=== PATIENT | male | born 1945 | race Caucasian/White ===

== ENCOUNTER 2019-03-12 10:11 | Observation (INO) ==
--- NOTE | 2019-03-12 10:42 | History & Physical Report ---
Date of Encounter: 03/12/19 Time of Encounter: 10:42 24 Hour HP Update - Instructions Instructions: If the History and Physical is less than 30 days old and was completed prior to A.M. admission and or procedure and has NOT been updated on calendar day of procedure please complete this update prior to performing procedure. - Update Patient reports changes in Medical Condition: No Changes in examination, assessment, or condition: No Changes in Medication: No Preop tests/diagnostics Reviewed: Yes Surgery Remains Indicated: Yes Consent for Planned Operative Procedure(s) Verified: Yes - Pre-Operative Checklist Preoperative Checklist Indicated: No Prophylactic Antibiotic Ordered: Yes Is VTE Prophylaxis Indicated?: Yes
--- NOTE | 2019-03-12 10:43 | Discharge Summary ---
Date of Encounter: 03/15/19 Time of Encounter: 15:23 - Discharge Diagnosis (1) Complete tear of anterior cruciate ligament of right knee Priority: Primary Status: Acute Qualifiers: Encounter type: subsequent encounter Qualified Code(s): S83.511D - Sprain of anterior cruciate ligament of right knee, subsequent encounter (2) Tear of lateral collateral ligament of right knee Priority: Primary Status: Acute Qualifiers: Encounter type: subsequent encounter Qualified Code(s): S83.421D - Sprain of lateral collateral ligament of right knee, subsequent encounter (3) Arthritis of right knee Priority: Primary Status: Chronic (4) Hypertension Priority: Secondary Status: Chronic Qualifiers: Hypertension type: unspecified Qualified Code(s): I10 - Essential (primary) hypertension (5) Obstructive sleep apnea Priority: Secondary Status: Chronic (6) Type 2 diabetes mellitus Priority: Secondary Status: Chronic Qualifiers: Diabetes mellitus senior living insulin use: unspecified production administrator insulin use status Diabetes mellitus complication status: without complication Qualified Code(s): E11.9 - Type 2 diabetes mellitus without complications (7) Status post total knee replacement, right Priority: Primary Status: Acute - Hospital Course Hospital course: Mr. Dominguez is a 73 year old male The patient had an uneventful postoperative course. They received antibiotics and physical therapy and were discharged in stable condition. There will follow-up in the office in 2 weeks. - Time Spent with Patient Total time spent providing and/or coordinating discharge services: - Discharge Medications Prescriptions: New Aspirin Enteric Coated [Aspirin EC] 325 mg PO BID #20 tablet. OxyCOLUBNA Immed Rel [Roxicodone 5 MG] 5 mg PO Q6HR PRN 5 Days #20 tablet PRN Reason: Pain Continued Amlodipine Besylate 5 mg PO BID Finasteride [Proscar] 5 mg PO DAILY Fluticasone Propionate Nasal [Flonase] 1 spr NS DAILY PRN PRN Reason: Allergy Symptoms Hydralazine HCl 100 mg PO Q8H Isosorbide MONOnitrate (24 HR) [Imdur] 60 mg PO DAILY Levocetirizine Dihydrochloride [Allergy Relief (Xyzal)] 5 mg PO DAILY Lisinopril [Zestril] 40 mg PO DAILY Metformin HCl 1,000 mg PO BID Pantoprazole Sodium [Protonix] 40 mg PO DAILY Potassium Chloride 20 meq PO DAILY Rosuvastatin Calcium 5 mg PO HS Semaglutide [Ozempic] 0.25 mg IM FR Nebivolol HCl [Bystolic] 20 mg PO DAILY Discontinued Meloxicam 7.5 mg PO DAILY Aspirin [Lo-Dose Aspirin EC] 81 mg PO DAILY Home Medications: Amlodipine Besylate 5 mg PO BID 03/12/19 [History] Aspirin Enteric Coated [Aspirin EC] 325 mg PO BID #20 tablet. 03/12/19 [Rx] Finasteride [Proscar] 5 mg PO DAILY 03/12/19 [History] Fluticasone Propionate Nasal [Flonase] 1 spr NS DAILY PRN 03/12/19 [History] Hydralazine HCl 100 mg PO Q8H 03/12/19 [History] Isosorbide MONOnitrate (24 HR) [Imdur] 60 mg PO DAILY 03/12/19 [History] Levocetirizine Dihydrochloride [Allergy Relief (Xyzal)] 5 mg PO DAILY 03/12/19 [History] Lisinopril [Zestril] 40 mg PO DAILY 03/12/19 [History] Metformin HCl 1,000 mg PO BID 03/12/19 [History] Nebivolol HCl [Bystolic] 20 mg PO DAILY 03/12/19 [History] OxyCODONE Immed Rel [Roxicodone 5 MG] 5 mg PO Q6HR PRN 5 Days #20 tablet 03/12/19 [Rx] Pantoprazole Sodium [Protonix] 40 mg PO DAILY 03/12/19 [History] Potassium Chloride 20 meq PO DAILY 03/12/19 [History] Rosuvastatin Calcium 5 mg PO HS 03/12/19 [History] Semaglutide [Ozempic] 0.25 mg IM FR 03/12/19 [History] Allergies/Adverse Reactions: Allergy/AdvReac Type Severity Reaction Status Date / Time No Known Allergies Allergy Verified 03/12/19 10:44 Primary care physician: Elmo simmons - Patient Status Disposition: Home, Self-Care Condition: Good Functional capacity at discharge: uses cane/walker Overall status at discharge: patient is progressing back to baseline - Discharge Instructions Instructions: Total Knee Replacement (DC) Follow Up With: Elmo simmons [Other] Additional Instructions: Discharge Instructions: Total Knee Replacement Please call [facility] ([phone]), your Primary Care Physician, or report to the Emergency Room if you have any of the following symptoms: Nausea, vomiting, fever greater that 101.5, swelling, chest pain, shortness of breath, increased pain/redness/drainage/odor for your incision site, numbness/tingling, or any other concerning symptoms. ACTIVITY:Weight-bearing as tolerated. You may progress off support (crutches or walker) as tolerated. Incentive Spirometer 10 times an hour. MEDICATIONS: Upon discharge resume your home medications. Take all the medications as prescribed. Take a stool softener if taking narcotic pain medications. Stool softeners are only effective if you drink enough fluids. Drink 6-8 glass of water or fluids a day, unless this is not allowed for another health problem. Despite using stool softeners, if you haven't had a bowel movement in 3 days, please switch to a gentle laxative. Gentle laxatives are sold over the counter. You should have a bowel movement within 24 hours, if not call the office. You will be discharged from the hospital with a prescription for pain medication. You are encouraged to decrease the use of narcotic pain medication as tolerated. Should you require a refill, please call the office. [facility] prescribes narcotic pain medication for only 4-6 weeks after surgery. If you require pain medication beyond this time period, you may be referred to your Primary Care Physician or to the Pain Clinic for further evaluation. Plan ahead for refills on pain medication as many narcotics either need to be picked up at the office or mailed. It is best to call 48-72 hours in advance of needing a prescription refill so you don't run out of medication. To help control the post-operative pain, you may take NSAIDs (Aleve,Advil, Mo natalie, Ibuprofen, Naprosyn) or Tylenol as prescribed on the bottle in addition to the pain medication. ANTICOAGULATION (blood thinners): Continue your Aspirin, Lovenox or Coumadin as prescribed to help prevent a blood clot in the leg or in the lungs. As long as your incision remains dry and you tolerate the NSAIDs (Aleve, Advil, Motrin, ibuprofen, naprosyn), it is OK to use the NSAIDS while you are taking your anticoagulation medication. Should your incision start to drain, stop the NSAID and contact our office. Common symptoms of blood clot in the legs include: localized pain, swelling, calf tenderness, redness or discoloration of the skin. Blood clot in the lung symptoms include: shortness of breath, rapid pulse, sweating, and chest pain that worsens with deep breathing, coughing up blood, lightheadedness, feelings of anxiety. If you experience any of these symptoms notify your physician immediately, go to the emergency room, or if having trouble breathing, call 911. WOUND CARE: Leave the dressing on for 7 to 10days. You may change the dressing if it becomes saturated greater than 50%. Do not get the dressing wet at anytime. Wash your hands with antibacterial soap, rinse and dry prior to any wound care. If you have justin the visiting nurse or rehab facility can remove the stapes 10-14 days after surgery and place steri-strips across the wound. Leave the steri-strips in place until they fall off on their won. You may let water from the shower run on top of the steri-strips. If you do not have a visiting nurse or rehab facility, you will need to return to the office at 10-14 days for the justin to be removed. If you have itching or redness around the dressing call the office. FOLLOW-UP: Please follow up with your surgeon in the orthopedic clinic in 4 weeks from the day of surgery. If you have justin that need to be removed, you will need to come back to the office in 10-14 days from the day of surgery.
[2019-03-12] MEDS ORDERED: CeFAZolin Syr 2,000MG/20 ML 2,000 MG/20 ML SYRINGE IVPB ONE (10:53)
--- NOTE | 2019-03-12 10:53 | Anesthesia Evaluation PreOp ---
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)) Other Medical History: Diabetes Type II (does not use insulin), GERD Anesthesia History: No Prior Anesthetic Complications, Past Anesthesia (left renal stent) Medications and Allergies Amlodipine Besylate 5 mg PO BID 03/12/19 [History] Aspirin [Lo-Dose Aspirin EC] 81 mg PO DAILY 03/12/19 [History] Finasteride [Proscar] 5 mg PO DAILY 03/12/19 [History] Fluticasone Propionate Nasal [Flonase] 1 spr NS DAILY PRN 03/12/19 [History] Hydralazine HCl 100 mg PO Q8H 03/12/19 [History] Isosorbide MONOnitrate (24 HR) [Imdur] 60 mg PO DAILY 03/12/19 [History] Levocetirizine Dihydrochloride [Allergy Relief (Xyzal)] 5 mg PO DAILY 03/12/19 [History] Lisinopril [Zestril] 40 mg PO DAILY 03/12/19 [History] Meloxicam 7.5 mg PO DAILY 03/12/19 [History] Metformin HCl 1,000 mg PO BID 03/12/19 [History] Nebivolol HCl [Bystolic] 20 mg PO DAILY 03/12/19 [History] Pantoprazole Sodium [Protonix] 40 mg PO DAILY 03/12/19 [History] Potassium Chloride 20 meq PO DAILY 03/12/19 [History] Rosuvastatin Calcium 5 mg PO HS 03/12/19 [History] Semaglutide [Ozempic] 0.25 mg IM FR 03/12/19 [History] Allergy/AdvReac Type Severity Reaction Status Date / Time No Known Allergies Allergy Verified 03/12/19 10:44 - Meds/Allergy Pre-op Review Medications Reviewed: Yes Allergies Reviewed: Yes Beta Blockers on Current Med List: Yes (bystolic) If Beta Blockers taken, Date/Time (Last Dose taken): 03-12-19 bystolic at 7 am Anesthesia Results - Labs Laboratory Tests 04/24/19 04/24/19 04/24/19 09:18 09:18 09:18 WBC 5.2 Hgb 13.8 Hct 42.1 Plt Count 251 PT 10.4 INR 0.9 APTT 34.5 Sodium 140 Potassium 3.5 Chloride 101 Carbon Dioxide 29 BUN 17 Creatinine 0.94 Est GFR ( Amer) > 60 Est GFR (Non-Af Amer) > 60 BUN/Creatinine Ratio 18 Glucose 112 H Est Mean Plasma Glucose Hemoglobin A1c Calculated Osmolality 292 Calcium 9.4 03/10/19 09:18 WBC Hgb Hct Plt Count PT INR APTT Sodium Potassium Chloride Carbon Dioxide BUN Creatinine Est GFR ( Amer) Est GFR (Non-Af Amer) BUN/Creatinine Ratio Glucose Est Mean Plasma Glucose 128 Hemoglobin A1c 6.1 H Calculated Osmolality Calcium Anesthesia Exam Last Vital Signs Temp 97.7 F 03/12/19 10:44 Pulse 65 03/12/19 10:44 Resp 18 03/12/19 10:44 BP 152/91 03/12/19 10:44 Pulse Ox 97 03/12/19 10:44 Weight: 78 kg NPO (# of Hours): > 8 hrs - HEENT Pupil (Motor): Pupils equal, EOMI Mallampati: III Teeth: Missing Denture Type: Upper: Partial Oral Opening: Greater than 3 - YOUTH CARE WORKER LOC: Oriented - Cardiac Rhythm: Regular Murmur: None - Pulmonary Breath Sounds: bilateral Clear Respiratory Effort: Symmetrical Anesthesia Assess/Plan ASA Score: 2 Level of consciousness: Cooperative Anesthetic Plan: Regional Nerve Block (Adductor canal), MAC, Spinal Regional Nerve Block Plan: Adductor canal Monitoring Plan: Standard Monitors Recovery Plan: PACU
[2019-03-12] MEDS ORDERED: Ringers Solution, Lactated 1,000 ML IVC SCH (11:00)
[2019-03-12] MEDS ORDERED: *HR* FentaNYL (PF) 100 MCG/2 ML VIAL ONE (11:16)
[2019-03-12] MEDS ORDERED: *HR* Propofol 200 MG/20 ML VIAL IVP ONE (11:17)
[2019-03-12] MEDS ORDERED: *HR* Midazolam HCl 2 MG/2 ML VIAL ONE (11:17)
[2019-03-12] MEDS ORDERED: Lidocaine -MPF 2% 2 ML VIAL ONE (11:19)
[2019-03-12] MEDS ORDERED: *HR* OxyCODONE Immed Rel 5 MG TABLET PO ONE (11:28)
[2019-03-12] MEDS ORDERED: Celecoxib 200 MG CAPSULE PO ONE ×2 (11:29→11:34)
[2019-03-12] MEDS ORDERED: Gabapentin 300 MG CAPSULE PO ONE (11:29)
[2019-03-12] MEDS ORDERED: *HR* OxyCODONE Immed Rel 5 MG TABLET ONE (11:34)
[2019-03-12] MEDS ORDERED: ROPIVACAINE HCL/PF 0.5% 30 ML VIAL ONE (11:34)
[2019-03-12] MEDS ORDERED: Gabapentin 300 MG CAPSULE ONE (11:35)
[2019-03-12] MEDS ORDERED: Ethanol\\Acetic Acid\\Na Ace\\Ben 1,000 ML IRRIG.SOLN IR ONE (11:45)
[2019-03-12] MEDS ORDERED: Lidocaine -MPF 1% 5 ML AMPUL ONE (11:50)
[2019-03-12] MEDS ORDERED: Ropivacaine/PF 0.5% 24.62 ML, EPINEPHrine 0.25 MG, Ketorolac 15 MG, Water for inj. (ste... IR ONE (12:25)
--- NOTE | 2019-03-12 12:42 | Anesthesia Procedures ---
Date of Encounter: 03/12/19 Time of Encounter: 12:38 Procedures: Anesthesia - Nerve Block Procedure Date: 03/12/19 Time: 12:00 Allergies/Adv Reactions: No Known Allergies Allergy (Verified 03/12/19 10:44) Pre-op Diagnosis: right knee acl and lcl tear, oa Surgical Procedure: right total knee Checklist: Correct Patient Identifier, Correct procedure, History checked Correct side: Right Blood Thinner: No Monitor Applied: EKG, BP, Pulse Oximetry Supplemental Oxygen via Nasal Cannula (L/min): 2 Sedation: Versed (mg): 2 Sedation: Fentanyl (mcg): 100 Indication: Post Op Analgesia Block Type: Other (adductor) Catheter placed: No Sterile Technique: Yes Ultrasound used: Yes Anatomy identified: Yes Visual spread of Local: Yes Neuro Stimulation: No Blood on Needle Aspiration: No Smooth Injection of Local: Yes Pain with Injection of Local: No Prep: Chlorhexadine Needle: 22 x 50 mm Stimuplex Local: Ropivacaine (0.) Volume (cc): 15 Number of Attempts: 1 Complications: None/effective block
[2019-03-12] MEDS ORDERED: Tranexamic Acid 1,000 MG/10 ML VIAL ONE (12:45)
--- NOTE | 2019-03-12 12:45 | Anesthesia Procedures ---
Date of Encounter: 03/12/19 Time of Encounter: 11:55 Procedures: Anesthesia - Epidural/Spinal Patient ID/Chart reviewed: Yes Patient examined: Yes Site Prep: Aseptic Technique Patient position: upright Local Anesthetic: Lidocaine 1% Amount of Local Anesthetic used: 2 Procedure: L4-5 aseptically x 1 attempt, clear csf, no parasthesias, no heme. 2.5cc 0.5% bupivicaine plain after positive swirl. Tolerated without complaint.
--- NOTE | 2019-03-12 13:52 | Orthopedic Operative Note ---
Date of procedure: 03/12/19 Pre-op diagnosis: Right knee ACL tear/LCL tear/arthritis Post-op diagnosis: same Procedure: Procedure: Right robotic-assisted Total knee replacement Estimated blood loss: 100 cc Hardware: Metal and polyethylene replacement. Keller Femur: 4 Tibia: 5 TS insert: 9 Patella:36 Exam Under anesthesia: 2 degree flexion contracture 2 degrees valgus as calculated by the robot full flexion Procedural Notes: Grade 2 varus laxity complete ACL tear grade 3 arthritic changes trochlear groove lateral compartment Operative procedure: The patient was brought to the operating room and placed on the operating room table. After general anesthesia was administered the operative knee was examined. Findings were noted in the exam under anesthesia. The operative extremity was prepped and draped in sterile surgical fashion. The patient received IV antibiotics prior to skin incision. A standard midline incision was made centered over the patella. The incision was made through the skin and subcutaneous tissue. A medial parapatellar tendon approach was performed. Care was taken to preserve tissue along the medial aspect of the patella. And to protect the patella tendon. The deep MCL was released off the medial tibia. The infra patella fat pad was excised. The patella was everted and cut was made at the level of the insertion of the quadriceps and patella tendon. The patella was sized the guide was seated and the lug holes are drilled. Knee was brought into flexion. Patient noted to have grade 3 arthritic changes trochlear groove and lateral compartment, complete ACL tear. Steinmann pins were placed in the tibia and the femur for the tibial and femoral arrays respectively. Checkpoints were also placed in the tibia and the femur for calculation purposes. The knee including the femur and the tibial registered. Osteophytes, ACL was torn PCL was excised. Extension and flexion were assessed with a valgus stress components were adjusted on the computer to balance the knee. Femoral cuts were made first with robotic assistance, these included the anterior cut posterior cuts chamfer cuts. Tibial cut was then performed with robotic assistance as well. Bone fragments were removed, as well as the medial and lateral meniscus. The size 4 femoral guide was seated box cut was made lug holes are drilled. The size 5 tibial tray was seated and prepared with the fin cutter. Trial reduction with the 9 TS Gege revealed extension of 0 degree and 0 degrees varus valgus full flexion. No varus valgus instability. Trial reduction revealed excellent patella tracking. All trial components were removed all bony surfaces were irrigated. The Tibia was seated followed by the femur, The selected Gege size was seated and secured patella. Patient had similar findings for motion and stability. The knee was then irrigated out with 2 L of pulse irrigation. The extensor mechanism was closed with #2 FiberWire suture and #2 PDS suture. The subcutaneous tissue was then irrigated and closed deep with #1 PDS suture superficially with 0 PDS suture and skin was closed with zip tie The patient was then placed in a sterile dressing and a postoperative brace extubated and transferred to recovery room in stable condition. Anesthesia: spinal Surgeon: Jose Sparrow Was there an assistant general manager present: No Estimated blood loss (cc): 100 Condition: stable Disposition: PACU
--- NOTE | 2019-03-12 14:31 | Anesthesia Evaluation Post Op ---
Date of Encounter: 03/12/19 Time of Encounter: 14:30 - Vital Signs Vital Signs: Last Vital Signs Temp 97.5 F L 03/12/19 14:14 Pulse 58 03/12/19 14:24 Resp 14 03/12/19 14:24 BP 124/73 03/12/19 14:24 Pulse Ox 96 03/12/19 14:24 - Lungs Lungs: Clear Ascult./Percussion - Airway Airway: Non-obstructed - Cardiovascular Regular Rate - Mental Status Mental Status: Alert & Oriented, Answers Appropriately - Pain Pain Scale: 1 - Nausea Vomiting Nausea Vomiting: Not Present - Hydration Hydration: Ice chips - Discharge PostOp Status: Transfer Patient to floor
[2019-03-12 14:44] LABS: Hematocrit 36.2 % (37.5-50.1)
[2019-03-12] MEDS ORDERED: Dextrose Gel 15 GM/37.5 ML TUBE PO PRN ×2 (14:46)
[2019-03-12] MEDS ORDERED: Fluticasone Propionate Nasal 50 MCG/SPRAY BOTTLE NS PRN (14:46)
[2019-03-12] MEDS ORDERED: D5% in Water 1,000 ML IVC PRN (14:46)
[2019-03-12] MEDS ORDERED: *HR* Promethazine 25 MG/ML VIAL IVP PRN (14:46)
[2019-03-12] MEDS ORDERED: Temazepam 15 MG CAPSULE PO PRN (14:46)
[2019-03-12] MEDS ORDERED: MOM Conc 10 ML UD.LIQ PO PRN (14:46)
[2019-03-12] MEDS ORDERED: Sennosides 8.6 MG TABLET PO PRN (14:46)
[2019-03-12] MEDS ORDERED: Ondansetron 4 MG/2 ML VIAL IVP PRN (14:46)
[2019-03-12] MEDS ORDERED: *HR* Dextrose 50 % in Water (Syg) 50 ML SYRINGE IVP PRN (14:46)
[2019-03-12] MEDS ORDERED: (Semaglutide [Ozempic] 0.25 MG) IM SCH (14:46)
[2019-03-12] MEDS ORDERED: Naloxone 0.4 MG/ML INJ IVP PRN (14:46)
[2019-03-12] MEDS: *HR* OxyCODONE Immed Rel 5 MG TABLET PO PRN (16:36)
[2019-03-12] MEDS: *HR* Enoxaparin 30 MG/0.3 ML SYRINGE SQ SCH (17:33)
[2019-03-12] MEDS: hydrALAZINE 25 MG TABLET PO SCH ×2 (17:33→23:36)
[2019-03-12] MEDS: Ascorbic Acid 500 MG TABLET PO SCH (17:33)
[2019-03-12] MEDS: *HR* Metformin 500 MG TABLET PO SCH (17:33)
[2019-03-12] MEDS ORDERED: *HR* Enoxaparin 30 MG/0.3 ML SYRINGE SQ SCH (18:00)
[2019-03-12] MEDS: Insulin LISPRO 300 UNITS/3 ML VIAL SQ SCH ×2 (19:00→21:02)
[2019-03-12] MEDS: amLODIPine 5 MG TABLET PO SCH (21:02)
[2019-03-13] MEDS: HYDROcodone BIT/Homatropine 5 MG TABLET PO PRN (00:15)
[2019-03-13 01:47] LABS: Basophils # 0.1 K/mcL (0.0-0.2); Basophils % 0.6 %; Eosinophils # 0.2 K/mcL (0.0-0.6); Eosinophils % 2.1 %; Hematocrit 37.5 % (37.5-50.1); Hemoglobin 12.6 g/dL (12.9-16.9); Immature Granulocytes % 0.3 % (0-4); Lymphocytes # 1.5 K/mcL (0.6-4.6); Lymphocytes % 16.2 %; Mean Corpuscular HGB Conc 33.6 g/dL (31.6-35.5); Mean Corpuscular Hemoglobin 28.5 pg (28.0-33.3); Mean Corpuscular Volume 84.8 fL (83.0-100.0); Monocytes # 0.6 K/mcL (0.0-1.3); Monocytes % 6.4 %; Neutrophils # 6.9 K/mcL (1.6-8.9); Platelet Count 215 K/mcL (140-400); Red Blood Count 4.42 M/mcL (4.19-5.50); Red Cell Distribution Width 13.2 % (11.5-14.5); Segmented Neutrophils % 74.4 %
[2019-03-13 07:21] LABS: BUN/Creatinine Ratio 16 (6-26); Blood Urea Nitrogen 16 mg/dL (8-23); Calcium 8.5 mg/dL (8.6-10.3); Carbon Dioxide 25 mEq/L (23-29); Chloride 104 mEq/L (98-107); Glucose 106 mg/dL (70-105); Osmolality,Calculated 292 (280-300); Potassium 3.5 mEq/L (3.5-5.1); Sodium 140 mEq/L (136-145); eGFR For Non-African Americans > 60 (> 60)
[2019-03-13] MEDS: hydrALAZINE 25 MG TABLET PO SCH ×3 (07:30→23:15)
[2019-03-13] MEDS: Insulin LISPRO 300 UNITS/3 ML VIAL SQ SCH ×4 (07:30→21:00)
[2019-03-13] MEDS: *HR* Enoxaparin 30 MG/0.3 ML SYRINGE SQ SCH ×2 (07:30→17:32)
--- NOTE | 2019-03-13 08:40 | Orthopedics Progress Note ---
Date of Encounter: 03/13/19 Time of Encounter: 08:39 Subjective Interval history: S: Patient is seen today and has no complaints. O: Afebrile and vital signs are stable Operative extremity dressing is clean, dry, and intact. Neurovascularly intact distally A: Post right total knee arthroplasty P: Resume postoperative care Okay to discharge today once therapy makes recommendations and once disposition to set up. Objective Vital signs: Vital Signs Temp Pulse Resp BP Pulse Ox 03/13/19 07:04 98.4 F 61 18 144/73 97 03/12/19 22:30 97.5 F L 60 17 142/76 96 03/12/19 19:43 97.3 F L 55 17 131/73 97 03/12/19 16:08 97.8 F 60 14 162/93 97 03/12/19 15:27 97.6 F 60 15 157/81 99 03/12/19 14:54 97.5 F L 56 132/76 94 03/12/19 14:43 97.5 F L 53 14 126/76 96 03/12/19 14:34 97.5 F L 54 14 126/78 96 03/12/19 14:24 58 14 124/73 96 03/12/19 14:14 97.5 F L 56 14 126/74 96 03/12/19 14:04 66 14 115/73 96 03/12/19 13:54 63 16 114/73 93 03/12/19 13:44 98.6 F 68 16 94/71 93 03/12/19 12:17 67 18 131/83 100 03/12/19 12:13 68 18 118/80 100 03/12/19 12:08 73 18 125/118 100 03/12/19 12:03 68 16 124/82 99 03/12/19 11:57 68 16 128/66 99 03/12/19 11:55 68 16 143/90 98 03/12/19 11:50 70 16 156/93 100 03/12/19 11:45 69 18 151/103 100 03/12/19 10:44 97.7 F 65 18 152/91 97 Intake and Output 03/12/19 03/13/19 03/13/19 23:59 07:59 15:59 Intake Total 100 / 100 Output Total 600 / 700 100 / 100 Balance -500 / -600 -100 / -100 Intake: IV Fluids 100 / 100 Ancef 2,000 MG In 0.9 % Sodium 100 / 100 Chloride 100 ML @ 200 mls/hr IVPB Q8HR [facility] Rx#:[id number] Output: Urine 600 / 600 100 / 100 Other: Meal Dinner Percent of Meal Consumed 100% # Voids 1 Blood Glucose* 160 90 - Labs CBC & BMP: 03/13/19 01:24 03/13/19 01:24 Labs: Abnormal lab results Hgb 12.6 g/dL (12.9-16.9) L 03/13/19 01:24 Hct 36.2 % (37.5-50.1) L 03/12/19 13:56 Glucose 106 mg/dL (70-105) H 03/13/19 01:24 POC Glucose 103 mg/dL (70-99) H 03/12/19 10:41 Calcium 8.5 mg/dL (8.6-10.3) L 03/13/19 01:24 - VTE Documentation of Mechanical Device: Venous foot pump, device Consult Discharge Plan - Plan Referrals: Elmo simmons [Other] Prescriptions: Aspirin Enteric Coated [Aspirin EC] 325 mg PO BID #20 tablet. OxyCODONE Immed Rel [Roxicodone 5 MG] 5 mg PO Q6HR PRN 5 Days #20 tablet PRN Reason: Pain
[2019-03-13] MEDS: *HR* OxyCODONE Immed Rel 5 MG TABLET PO PRN ×4 (09:56→21:05)
[2019-03-13] MEDS: Finasteride 5 MG TABLET PO SCH (09:56)
[2019-03-13] MEDS: *HR* Metformin 500 MG TABLET PO SCH ×2 (09:56→15:59)
[2019-03-13] MEDS: Lisinopril 20 MG TABLET PO SCH (09:57)
[2019-03-13] MEDS: Ascorbic Acid 500 MG TABLET PO SCH ×2 (09:57→15:59)
[2019-03-13] MEDS: Multivit/Ca/Min/Fe/FA 1 TAB TABLET PO SCH (09:57)
[2019-03-13] MEDS: Loratadine 10 MG TABLET PO SCH (09:57)
[2019-03-13] MEDS: amLODIPine 5 MG TABLET PO SCH ×2 (09:57→21:05)
[2019-03-13] MEDS: Aspirin Enteric Coated 81 MG Tablet PO SCH (09:57)
[2019-03-13] MEDS: Isosorbide MONOnitrate (24 HR) 60 MG TAB.ER.24H PO SCH (09:57)
[2019-03-13] MEDS: traMADol 50 MG TABLET PO PRN (23:19)
[2019-03-14] MEDS: HYDROcodone BIT/Homatropine 5 MG TABLET PO PRN (02:38)
[2019-03-14] MEDS: traMADol 50 MG TABLET PO PRN ×2 (05:30→12:02)
[2019-03-14] MEDS: hydrALAZINE 25 MG TABLET PO SCH (05:30)
[2019-03-14] MEDS: *HR* Enoxaparin 30 MG/0.3 ML SYRINGE SQ SCH (05:30)
[2019-03-14 07:00] LABS: Basophils % 0.4 %; Eosinophils % 0.3 %; Hematocrit 34.1 % (37.5-50.1); Hemoglobin 11.6 g/dL (12.9-16.9); Lymphocytes # 1.3 K/mcL (0.6-4.6); Lymphocytes % 13.6 %; Mean Corpuscular Hemoglobin 28.4 pg (28.0-33.3); Mean Corpuscular Volume 83.6 fL (83.0-100.0); Mean Platelet Volume 10.2 fL (9.4-12.4); Monocytes # 0.9 K/mcL (0.0-1.3); Monocytes % 9.3 %; Neutrophils # 7.3 K/mcL (1.6-8.9); Platelet Count 201 K/mcL (140-400); Red Blood Count 4.08 M/mcL (4.19-5.50); Red Cell Distribution Width 13.3 % (11.5-14.5); Segmented Neutrophils % 75.4 %
[2019-03-14 07:16] LABS: BUN/Creatinine Ratio 19 (6-26); Blood Urea Nitrogen 16 mg/dL (8-23); Calcium 8.9 mg/dL (8.6-10.3); Carbon Dioxide 27 mEq/L (23-29); Chloride 101 mEq/L (98-107); Glucose 188 mg/dL (70-105); Osmolality,Calculated 292 (280-300); Potassium 3.4 mEq/L (3.5-5.1); Sodium 138 mEq/L (136-145); eGFR For Non-African Americans > 60 (> 60)
[2019-03-14] MEDS: Ringers Solution, Lactated 1,000 ML IVC SCH (07:28)
[2019-03-14] MEDS: *HR* OxyCODONE Immed Rel 5 MG TABLET PO PRN (09:12)
[2019-03-14] MEDS: *HR* Metformin 500 MG TABLET PO SCH (09:12)
[2019-03-14] MEDS: Multivit/Ca/Min/Fe/FA 1 TAB TABLET PO SCH (09:12)
[2019-03-14] MEDS: Loratadine 10 MG TABLET PO SCH (09:13)
[2019-03-14] MEDS: Insulin LISPRO 300 UNITS/3 ML VIAL SQ SCH ×2 (09:13→12:07)
[2019-03-14] MEDS: Isosorbide MONOnitrate (24 HR) 60 MG TAB.ER.24H PO SCH (09:13)
[2019-03-14] MEDS: amLODIPine 5 MG TABLET PO SCH (09:13)
[2019-03-14] MEDS: Finasteride 5 MG TABLET PO SCH (09:13)
[2019-03-14] MEDS: Lisinopril 20 MG TABLET PO SCH (09:13)
[2019-03-14] MEDS: Aspirin Enteric Coated 81 MG Tablet PO SCH (09:13)
[2019-03-14] MEDS: Ascorbic Acid 500 MG TABLET PO SCH (09:13)
--- NOTE | 2019-03-14 10:11 | Orthopedics Progress Note ---
Date of Encounter: 03/14/19 Time of Encounter: 10:10 Subjective Interval history: S: Patient is seen today and has no complaints. O: Afebrile and vital signs are stable Operative extremity dressing is clean, dry, and intact. Neurovascularly intact distally A: Post right total knee arthroplasty P: Resume postoperative half-way today Objective Vital signs: Vital Signs Temp Pulse Resp BP Pulse Ox 03/14/19 06:42 98.1 F 69 20 153/82 94 03/14/19 03:23 98.2 F 71 18 150/73 95 03/13/19 23:10 99.0 F 72 18 164/81 96 03/13/19 21:10 95 03/13/19 19:04 99.1 F 86 18 145/82 95 03/13/19 14:57 98.3 F 71 16 148/76 96 03/13/19 11:06 98.0 F 68 18 152/75 94 Intake and Output 03/13/19 03/14/19 03/14/19 23:59 07:59 15:59 Intake Total 540 / 1140 1120 / 1120 Output Total 350 / 650 650 / 650 Balance 190 / 490 470 / 470 Intake: IV Fluids 1120 / 1120 Lactated Ringers 1,000 ML @ 25 1000 / 1000 mls/hr IVC .Q24H [facility] Rx#: [id number] Ancef Syringe 2,000 MG/20 ML 2, 20 / 20 000 mg In 20 ml @ 200 mls/hr IVPB PREOP ONE Rx#:[id number] Ancef 2,000 MG In 0.9 % Sodium 100 / 100 Chloride 100 ML @ 200 mls/hr IVPB Q8HR [facility] Rx#:[id number] Oral 540 / 1140 Output: Urine 350 / 650 650 / 650 Other: Meal Dinner Percent of Meal Consumed 100% Weight 79.2 kg Blood Glucose* 186 174 - Labs CBC & BMP: 03/14/19 06:31 03/14/19 06:31 Labs: Abnormal lab results RBC 4.08 M/mcL (4.19-5.50) L 03/14/19 06:31 Hgb 11.6 g/dL (12.9-16.9) L 03/14/19 06:31 Hct 34.1 % (37.5-50.1) L 03/14/19 06:31 Potassium 3.4 mEq/L (3.5-5.1) L 03/14/19 06:31 Glucose 188 mg/dL (70-105) H 03/14/19 06:31 POC Glucose 104 mg/dL (70-99) H 03/13/19 16:03 Calcium 8.5 mg/dL (8.6-10.3) L 03/13/19 01:24 - VTE Documentation of Mechanical Device: Venous foot pump, device Consult Discharge Plan - Plan Referrals: Elmo simmons [Other]
[2019-03-14 10:57] VITALS: BP 166/78
== END 2019-03-14 14:33 | disposition home or self-care (01) ==
LOC: SAMDAY 10:11 → 3NENU 10:11 → 2ANU 03-13 18:56
PROVIDERS: ADMIT Orthopaedic Surgery; ATTEND Orthopaedic Surgery